=== PATIENT | male | born 1990 | race Caucasian/White ===

== ENCOUNTER 2022-04-23 23:22 | Emergency (ER) | payer BC ==
[~2022-04-23] VITALS: Ht 195.6 cm; Wt 95.0 kg
[~2022-04-23 23:22] MED LIST: AMOXICILLIN500 MG PO; CIPROFLOXACN500 MG PO; LORTAB5 PO; STERAPRED DS10 MG PO
[2022-04-24 00:08] VITALS: BP 108/70
== END 2022-04-24 00:10 | disposition home or self-care (01) | DRG 605 ==
LOC: ED 23:22
PROC: 0HQEXZZ Repair Left Lower Arm Skin, External Approach (ICD-10-PCS; principal; 2022-04-23)
DX: S51.812A Laceration without foreign body of left forearm, initial encounter (principal); W26.0XXA Contact with knife, initial encounter